=== PATIENT | male | born 1945 | race Caucasian/White ===

== ENCOUNTER 2016-11-27 07:39 | Day surgery (SDC) | payer MEDICARE, OTHER ==
[~2016-11-27 07:39] MED LIST: ALLERGY10 M1 PO; ASPIRIN 81MG TA81 MG PO; ASPIRIN ADULT L81 M2 PO; BENADRYL ALLERG25 MG PO; BENAZEPRIL HYDR40 MG PO; BYSTOLIC10 MG PO; CEFDINIR300 M1 PO; DICYCLOMINE 10M10 MG PO; FLONASE 50 MCG16 GM; FOLIC ACID 1MG T1 MG PO; INDOCIN25 MG PO; IPRATROPIUM BROM3 M1 IN; LEVAQUIN750 MG PO; MAXZIDE 25 MG-31 TA1 PO; NEXIUM40 MG PO; PREDNISONE 20MG20 MG PO; PROAIR HFA0.09 MG/AC IH; PROVENTIL0.09 MG/A1 IH; TRAZADONE HYDR100 MG PO; TRIAMT/HCTZ TAB 37.; VYTORIN; VYTORIN 10 MG-81 TAB PO
[2016-11-27 08:12] LABS: HEMOGLOBIN 14.3 g/dL (14.1-18.0); LYMPH # 1.6 K/mm3 (0.7-4.5); LYMPH % 26.2 % (10-50)
[2016-11-27 08:17] LABS: BUN 17 mg/dL (7-18)
[2016-11-27 08:20] LABS: GFR (ESTIMATED) 50 ML/MIN (>60)
--- NOTE | 2016-11-27 10:53 | RADIOLOGY REPORT PS360 ---
PROCEDURE: Left selective renal angiogram Drug-eluting stent deployment to the ostial mid left renal artery INDICATION: 1. Renal artery stenosis 2. Abnormal renal duplex left renal artery 3. Chronic renal failure creatinine 1.4 Renovascular hypertension Informed consent was obtained prior to the procedure. COMPLICATIONS: None ESTIMATED BLOOD LOSS: Blood loss less than 10 cc. TECHNIQUE:1% lidocaine used to anesthetize the right femoral groin. The right femoral artery was accessed via the Seldinger technique and a 7 [place] sheath was placed in the right renal artery. 7000 units of heparin was administered intravenously and a 7 [place]ian short THORNE guiding catheter was used intubate the left renal artery. A wire was used to traverse the stenosis and a 4 mm x 9 mm resolute stent was deployed at 24 [place] in the ostium of the left renal artery. Repeat angiography demonstrated plaque distally. 500 mcg of nitroglycerin was administered into the left renal artery and repeat angiography was performed. Following this a 4 mm x 30 mm resolute stent was placed in the proximal mid segment and deployed at 24 [place] still overlapping the first 19 mm stent. Excellent angiographic results were obtained at the end of the procedure. The closing ACT was 374 seconds. At the end of the procedure the apparatus was removed the groin was reprepped gloves were changed sheath was removed good hemostasis was achieved using Perclose device patient transferred to the postop holding area in stable condition ANGIOGRAPHIC RESULTS: 1. The left renal artery has a dual arterial supply. The superior larger branch has an ostial severe stenosis in excess of 60%. Impression: 1. Severe left renal artery stenosis 2. Successful stenting of the ostial proximal mid left renal artery severe disease reduced to 0% with 2 drug-eluting stents Plan: 1. Continue dual antiplatelet therapy 2. Medical management for right renal artery stenosis 3. Risk factor modification
[2016-11-27 15:07] VITALS: BP 114/56
== END 2016-11-27 15:10 | disposition home or self-care (01) ==
LOC: SDC 07:39
PROVIDERS: Internal Medicine
PROC: 047A34Z Dilation of Left Renal Artery with Drug-eluting Intraluminal Device, Percutaneous Approach (ICD-10-PCS; principal; 2016-11-27 08:30)
DX: I70.1 Atherosclerosis of renal artery (principal); Z87.891 Personal history of nicotine dependence; I25.10 Atherosclerotic heart disease of native coronary artery without angina pectoris; I11.9 Hypertensive heart disease without heart failure; I71.4 Abdominal aortic aneurysm, without rupture; Z95.1 Presence of aortocoronary bypass graft; Z95.5 Presence of coronary angioplasty implant and graft
CPT/HCPCS: C1725; C1760; C1769; C1876; C1894; J1644; Q9967

== ENCOUNTER → 2017-05-15 | Outpatient (CLI) | payer MEDICARE, OTHER ==
--- NOTE | 2017-05-15 08:29 | RADIOLOGY REPORT PS360 ---
US AORTA (RETROPERITONEAL) COMPARISON: Ultrasound the aorta 11/10/2016 HISTORY: Follow-up known aortic aneurysm TECHNIQUE: Targeted ultrasound the abdomen and aorta FINDINGS: Again noted is mild diffuse aneurysmal dilatation of the infrarenal aorta extending to the bifurcation. The aorta measures 3.25 x 3.6 cm near the origin. Aneurysm dilatation extends to the bifurcation where the aorta measures 2.7 cm in diameter. The aorta is normal in caliber in the upper abdomen at approximately 2 cm below the xiphoid. 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
== END ==
LOC: RAD 07:41
DX: I71.4 Abdominal aortic aneurysm, without rupture (principal); I25.10 Atherosclerotic heart disease of native coronary artery without angina pectoris; I11.9 Hypertensive heart disease without heart failure; E78.5 Hyperlipidemia, unspecified; R06.02 Shortness of breath; N18.9 Chronic kidney disease, unspecified; Q27.1 Congenital renal artery stenosis

== ENCOUNTER → 2017-06-19 | Outpatient (CLI) | payer MEDICARE, OTHER ==
[~2017-06-19] MED LIST changes: +AMLODIPINE10 M2 PO; +EFFIENT5 MG PO; +FUROSEMIDE40 MG PO; +HYDROCHLOROTHIA25 M1 PO; +NITROGLYCERIN0.4 MG SL; +TAMSULOSIN HYD0.4 MG PO
[2017-06-19 11:26] LABS: BUN 22 mg/dL (7-18)
[2017-06-19 11:37] LABS: GFR (ESTIMATED) 40 ML/MIN (>60)
== END ==
LOC: LAB 09:14
PROVIDERS: Internal Medicine
DX: E11.42 Type 2 diabetes mellitus with diabetic polyneuropathy (principal); E11.59 Type 2 diabetes mellitus with other circulatory complications; I25.10 Atherosclerotic heart disease of native coronary artery without angina pectoris; I10 Essential (primary) hypertension; E78.5 Hyperlipidemia, unspecified